=== PATIENT | male | born 1935 | race Caucasian/White ===

== ENCOUNTER 2020-05-03 13:52 | Emergency (ER) | payer OTHER ==
[~2020-05-03] VITALS: Ht 172.7 cm; Wt 81.6 kg
[2020-05-03] MEDS ORDERED: LAMOTRIGINE5 MG PO (14:21)
[2020-05-03] MEDS ORDERED: MEMANTINE HCL5 MG PO (14:21)
[2020-05-03] MEDS ORDERED: VIMPAT100 MG PO (14:22)
[2020-05-03] MEDS ORDERED: CARBIDOPA-LEVO1 EAC9 PO (14:24)
[2020-05-03] MEDS ORDERED: CEFDINIR300 MG PO (18:34)
== END 2020-05-03 19:16 | disposition home or self-care (01) ==
LOC: ER 13:52
DX: N39.0 Urinary tract infection, site not specified (principal); Z03.818 Encounter for observation for suspected exposure to other biological agents ruled out

== ENCOUNTER 2020-08-22 12:27 | Inpatient (IN) | payer OTHER ==
[~2020-08-22] VITALS: Ht 172.7 cm; Wt 81.6 kg
[~2020-08-22 12:27] MED LIST: CARBIDOPA-LEVO1 EAC9 PO; CEFDINIR300 MG PO; LAMOTRIGINE5 MG PO; MEMANTINE HCL5 MG PO; VIMPAT100 MG PO
== END 2020-08-25 10:11 | disposition home or self-care (01) | DRG 69 ==
LOC: ER 12:27 → MEDJ 16:32 → MEDI 16:32 → SEC-K 18:25 → SURH 18:46 → MEDJ 08-23 13:49
PROVIDERS: ADMIT Internal Medicine; ATTEND Internal Medicine
PROC: BW28ZZZ Computerized Tomography (CT Scan) of Head (ICD-10-PCS; principal; 2020-08-22)
PROC: BW38ZZZ Magnetic Resonance Imaging (MRI) of Head (ICD-10-PCS; 2020-08-22)
DX: G45.8 Other transient cerebral ischemic attacks and related syndromes (principal); G40.802 Other epilepsy, not intractable, without status epilepticus; N39.0 Urinary tract infection, site not specified; G20 Parkinson's disease; R13.19 Other dysphagia; R53.1 Weakness; Z85.46 Personal history of malignant neoplasm of prostate; Z20.822 Contact with and (suspected) exposure to COVID-19; F02.80 Dementia in other diseases classified elsewhere, unspecified severity, without behavioral disturbance, psychotic disturbance, mood disturbance, and anxiety; Q99.8 Other specified chromosome abnormalities
CPT/HCPCS: 70544

== ENCOUNTER 2020-10-28 09:17 | Emergency (ER) | payer OTHER ==
[~2020-10-28] VITALS: Ht 167.6 cm; Wt 77.1 kg
[2020-10-28] MEDS ORDERED: LOSARTAN POTASS50 MG PO (09:50)
[2020-10-28] MEDS ORDERED: FOLIC ACID1 MG PO (09:50)
[2020-10-28] MEDS ORDERED: CARBIDOPA-LEVO1 EA12 PO (09:50)
== END 2020-10-28 15:49 | disposition home or self-care (01) ==
LOC: ER 09:17
DX: G40.89 Other seizures (principal); I67.82 Cerebral ischemia; G31.89 Other specified degenerative diseases of nervous system; F02.80 Dementia in other diseases classified elsewhere, unspecified severity, without behavioral disturbance, psychotic disturbance, mood disturbance, and anxiety; Z03.818 Encounter for observation for suspected exposure to other biological agents ruled out

== ENCOUNTER 2021-02-02 16:11 | Inpatient (IN) | payer OTHER ==
[~2021-02-02] VITALS: Ht 167.6 cm; Wt 77.1 kg
[~2021-02-02 16:11] MED LIST changes: +CARBIDOPA-LEVO1 EA12 PO; +FOLIC ACID1 MG PO; +LOSARTAN POTASS50 MG PO
[2021-02-02] MEDS ORDERED: METHOTREXA25 MG/1 M5 (16:37)
[2021-02-04] MEDS ORDERED: CELECOXIB100 MG (10:06)
[2021-02-04] MEDS ORDERED: LOSARTAN POTASS50 MG (10:06)
[2021-02-04] MEDS ORDERED: LANSOPRAZOLE30 MG (10:06)
[2021-02-04] MEDS ORDERED: LEVOTHYROXINE100 MCG (10:06)
[2021-02-04] MEDS ORDERED: BACTRIM DS TAB1 EACH (10:07)
[2021-02-04] MEDS ORDERED: TAMSULOSIN HCL0.4 MG (10:07)
== END 2021-02-09 12:49 | disposition home or self-care (01) | DRG 699 ==
LOC: ER 16:11 → MEDI 02-03 15:11
PROVIDERS: ADMIT Internal Medicine; ATTEND Internal Medicine
PROC: 30233N1 Transfusion of Nonautologous Red Blood Cells into Peripheral Vein, Percutaneous Approach (ICD-10-PCS; principal; 2021-02-07)
DX: T83.83XA Hemorrhage due to genitourinary prosthetic devices, implants and grafts, initial encounter (principal); N39.0 Urinary tract infection, site not specified; G20 Parkinson's disease; Z74.01 Bed confinement status; B95.2 Enterococcus as the cause of diseases classified elsewhere; D64.9 Anemia, unspecified

== ENCOUNTER 2021-04-08 15:24 | Emergency (ER) | payer OTHER ==
[~2021-04-08] VITALS: Ht 167.6 cm; Wt 68.0 kg
[~2021-04-08 15:24] MED LIST changes: +BACTRIM DS TAB1 EACH; +CELECOXIB100 MG; +LANSOPRAZOLE30 MG; +LEVOTHYROXINE100 MCG; +LOSARTAN POTASS50 MG; +METHOTREXA25 MG/1 M5; +TAMSULOSIN HCL0.4 MG
== END 2021-04-08 19:40 | disposition home or self-care (01) ==
LOC: ER 15:24
DX: R53.1 Weakness (principal); Z20.822 Contact with and (suspected) exposure to COVID-19